=== PATIENT | female | born 1965 | race Caucasian/White ===

== ENCOUNTER 2024-10-27 17:28 | Observation (INO) ==
--- NOTE | 2024-10-27 17:46 | ED.PDOC ---
General ED Provider: Dr. SOFIA SIDHU MD Chief Complaint: Respiratory Complaint Stated Complaint: Patient is a 59-year-old female that reported to the emergency department for weakness, palpitations, and shortness of breath. Patient stated that this has been going on for approximately a month now. She stated that it is getting worse. Patient also stated that during this time she has been eating a lot of ice noting that sometimes it is excessive. Patient stated that she has not been seen by a physician in a long time. Patient stated that she has no past medical history. Patient stated that her past surgical history was a tonsillectomy and a when she was younger. Patient stated that she hit menopause at 45 years of age. Patient did admit to having a couple episodes of blood in the stool. Patient denied any hemoptysis or melanic stools. Patient denied ever having a colonoscopy. Patient denied any recent contacts with people that were ill. Patient denied any fever. Patient denied anything making her symptoms better or worse. Patient denied any current chest pain, nausea, vomiting, diarrhea, dizziness, syncope, loss of consciousness, lymphadenopathy, sore throat, headache, or any other acute symptoms not currently mentioned in this HPI. Patient's vital signs are currently stable. Patient's GCS is 15. Time Seen by Provider: 10/27/24 17:30 Mode of Arrival: Walk-In Information Source: Patient Exam Limitations: No limitations Nursing and Triage Documentation Reviewed and Agree: Yes What is Opioid Naive?: *Opioid Naive implies the patient is not already taking opioids or not chronically receiving opioids on a daily basis. *PRN dosing is not "usually" associated with tolerance. *Patients are at higher risk of over-sedation and aspiration. What is Opioid Tolerant?: *Opioid Tolerance implies less than the expected response to an opioid. *Acquired tolerance is defined by the patient taking 60mg of oral morphine daily (or equianalgesic dose of another opioid) for 1 week or more. *Often associated with chronic pain. *May take more than usual dose to achieve desired pain control. Review of Systems Review Of Systems Constitutional: Reports Weakness Eyes: Reports No symptoms Ears, Nose, Mouth, Throat: Reports No symptoms Respiratory: Reports Shortness of Breath Cardiac: Reports No symptoms GI: Reports No symptoms : Reports No symptoms Musculoskeletal: Reports No symptoms Skin: Reports No symptoms Neurological: Reports No symptoms Endocrine: Reports No symptoms Hematologic/Lymphatic: Reports No symptoms All Other Systems: Reviewed and Negative Physical Exam Physical Exam Appearance: Reports Well-appearing, No pain distress and Well-nourished Ill-appearing: None Pain Distress: None Eyes: Reports JOSEPH, EOMI and Conjunctiva clear ENT: Reports Ears normal, Nose normal and Oropharynx normal Neck: Supple Respiratory: Reports Airway patent, Breath sounds clear, Breath sounds equal and Respirations nonlabored Cardiovascular: Reports Pulses normal, No rub, Tachycardia (Apical pulse of 108 bpm.) and Murmur (Patient has a grade 2 S1 murmur notably heard in the aortic and pulmonic post.) GI/: Reports Soft, Nontender, No masses and Bowel sounds normal Musculoskeletal: Reports Normal strength, ROM intact, No edema and No calf tenderness Skin: Reports Warm, Dry and Normal color Neurological: Reports Sensation intact, Motor intact, Reflexes intact, Cranial nerves intact, Alert and Oriented Psychiatric: Reports Affect appropriate and Mood appropriate Course Course Orders, Labs, Meds: Orders Category Date Time Status EKG-(ED ONLY) Stat CARDIO 10/27/24 17:44 Ordered CBC W/ AUTO DIFF Stat LAB 10/27/24 17:49 Received CMP [COMPREHENSIVE METABOLIC PANEL] Stat LAB 10/27/24 17:49 Received COVID [SARS COV-2 RNA RAPID JADE] Stat LAB 10/27/24 17:49 Ordered FLU A & B MOLECULAR [FLU A/B MOLECULAR] Stat LAB 10/27/24 17:49 Ordered HEMOCCULT [OCCULT BLOOD, STOOL] Stat LAB 10/27/24 18:01 Uncollected HEMOGLOBIN A1C Stat LAB 10/27/24 18:01 Ordered RSV Stat LAB 10/27/24 17:49 Ordered CHEST, 1V AP ONLY Stat RADS 10/27/24 17:43 Ordered Vital Signs: Temp Pulse Resp BP Pulse Ox 10/27/24 17:37 99.9 F 109 H 18 182/91 H 100 Discharge Plan Discharge Patient Disposition: PLACED OBSERVATION Discharge Problem: Symptomatic anemia, Acute hyperglycemia, Heart murmur, systolic Hypertension Qualifiers: Hypertension type: unspecified Qualified Code(s): I10 - Essential (primary) hypertension Did you review [place] [employer]GE[employer] for ALL controlled substances?: Not Applicable ED Provider: SOFIA SIDHU Condition: Stable Physician Progress Note: Patient is a 59-year-old female that reported to the emergency department for weakness, palpitations, and shortness of breath. Patient stated that this has been going on for approximately a month now. She stated that it is getting worse. Patient also stated that during this time she has been eating a lot of ice noting that sometimes it is excessive. Patient stated that she has not been seen by a physician in a long time. Patient stated that she has no past medical history. Patient stated that her past surgical history was a tonsillectomy and a when she was younger. Patient stated that she hit menopause at 45 years of age. Patient did admit to having a couple episodes of blood in the stool. Patient denied any hemoptysis or melanic stools. Patient denied ever having a colonoscopy. Patient denied any recent contacts with people that were ill. Patient denied any fever. Patient denied anything making her symptoms better or worse. Patient denied any current chest pain, nausea, vomiting, diarrhea, dizziness, syncope, loss of consciousness, lymphadenopathy, sore throat, headache, or any other acute symptoms not currently mentioned in this HPI. Patient's vital signs are currently stable. Patient's GCS is 15. -Will order EKG, chest x-ray, and baseline labs. Will also order a COVID and influenza and RSV test. -Will order a Hemoccult exam. - patient also mentioned that she took her own blood glucose a couple days ago at home and was found to have a blood glucose of 158 mg/dL in the morning while fasting. Will order hemoglobin A1c. -EKG shows sinus tachycardia with a rate of 110 bpm. Low voltage QRS is noted. Normal axis is noted. No acute ST elevations are noted. This is interpreted by the ER physician. -Patient has an iron deficiency anemia with a hemoglobin of 4.8 and hematocrit of 18. Will type and cross 2 units PRBCs and give each unit over 4 hours. -Chest x-ray shows possible atelectasis in the left lower lobe otherwise unremarkable. This was interpreted by the ER physician. -I spoken with the hospitalist (Mark Obregon NP) for admissions for symptomatic anemia and possible diabetes. Hospitalist has agreed to accept this patient.
[2024-10-27 17:59] LABS: BASOPHILS % (AUTO) 0.5 % (0.0-3.0); EOSINOPHILS # (AUTO) 0.1 K/ul (0.0-0.7); EOSINOPHILS % (AUTO) 1.9 % (0.0-7.0); HEMATOCRIT 18.8 % (37.0-47.0); IMMATURE GRANULOCYTE # (AUTO) 0.1 (0.0-1.0); IMMATURE GRANULOCYTE % (AUTO) 1.4 % (0.0-5.0); LYMPHOCYTES # (AUTO) 1.3 K/uL (0.60-3.4); LYMPHOCYTES % (AUTO) 22.4 (10.0-50.0); MEAN CORPUSCULAR HEMOGLOBIN 14.8 pg (27.0-31.0); MEAN CORPUSCULAR HGB CONC 25.5 (31.8-35.4); MONOCYTES # (AUTO) 0.5 K/uL (0.4-2.0); MONOCYTES % (AUTO) 8.5 (0-10); NEUTROPHILS # (AUTO) 3.7 K/ul (2.0-6.9); NEUTROPHILS % (AUTO) 65.3 % (42.2-75.2); PLATELET COUNT 345 10^3/uL (140-440); RDW COEFFICIENT OF VARIATION 19.3 % (11.6-14.8); RED BLOOD COUNT 3.24 10^6/ul (4.20-5.40); WHITE BLOOD COUNT 5.67 K/ul (4.6-10.2)
[2024-10-27 18:12] LABS: ALANINE AMINOTRANSFERASE 26.3 U/L (0-35); ALBUMIN 4.51 g/dL (3.5-5.0); ALKALINE PHOSPHATASE 72.1 U/L (53-141); ASPARTATE AMINO TRANSFERASE 35.8 U/L (14-36); BILIRUBIN,TOTAL 0.41 mg/dL (0.2-1.3); BLOOD UREA NITROGEN 14.6 mg/dL (7-17); CALCIUM 8.72 mg/dL (8.4-10.2); CHLORIDE 106.9 mmol/L (98-107); CREATININE 0.8 mg/dL (0.60-1.30); GLUCOSE 225.7 mg/dL (74-106); POTASSIUM 3.64 mmol/L (3.5-5.1); SODIUM 139.3 mmol/L (134.5-145); TOTAL PROTEIN 7.59 g/dL (6.3-8.2)
[2024-10-27 18:13] LABS: HEMOGLOBIN 4.8 g/dl (12.0-16.0)
--- NOTE | 2024-10-27 18:15 | DI ---
EXAM: CHEST RADIOGRAPH TECHNIQUE: Single frontal chest radiograph. HISTORY: Shortness of breath. COMPARISON: None. FINDINGS: Lungs/Pleura: There are a few streaky markings in the left lower lobe which may be due to scarring or subsegmental atelectasis. Heart: The heart size is normal. Bones: Unremarkable. Other: None. IMPRESSION: 1. Scarring or subsegmental atelectasis in the left lower lobe.
[2024-10-27 18:18] LABS: ANISOCYTOSIS 3+ (NOT PRESENT); HYPOCHROMASIA 3+ (NOT PRESENT); MICROCYTOSIS 3+ (NOT PRESENT); POIKILOCYTOSIS 1+ (NOT PRESENT); POLYCHROMASIA 1+ (NOT PRESENT)
[2024-10-27 18:31] LABS: MOLECULAR FLU A NEGATIVE BY NAAT (NEGATIVE); MOLECULAR FLU B NEGATIVE BY NAAT (NEGATIVE); RSV MOLECULAR NEGATIVE BY NAAT (NEGATIVE); SARS COV-2 RNA RAPID NAAT NEGATIVE (NEGATIVE)
[2024-10-27 18:51] LABS: IRON 15.4 ug/dL (37-170)
[2024-10-27 20:03] LABS: OCCULT BLOOD SAMPLE 1 POSITIVE (NEGATIVE)
[2024-10-27 20:40] VITALS: BMI 26.6
[2024-10-27] MEDS: FERROUS SULFATE PO SCH (21:11)
[2024-10-27] MEDS: TYLENOL PO PRN (23:37)
[2024-10-28 05:16] LABS: BASOPHILS % (AUTO) 0.8 % (0.0-3.0); EOSINOPHILS # (AUTO) 0.1 K/ul (0.0-0.7); EOSINOPHILS % (AUTO) 1.3 % (0.0-7.0); HEMATOCRIT 23.3 % (37.0-47.0); IMMATURE GRANULOCYTE % (AUTO) 0.4 % (0.0-5.0); LYMPHOCYTES # (AUTO) 1.6 K/uL (0.60-3.4); LYMPHOCYTES % (AUTO) 30.9 (10.0-50.0); MEAN CORPUSCULAR HEMOGLOBIN 18.5 pg (27.0-31.0); MEAN CORPUSCULAR HGB CONC 28.8 (31.8-35.4); MEAN CORPUSCULAR VOLUME 64.2 fl (81.0-99.0); MONOCYTES # (AUTO) 0.6 K/uL (0.4-2.0); MONOCYTES % (AUTO) 10.6 (0-10); NEUTROPHILS # (AUTO) 2.9 K/ul (2.0-6.9); PLATELET COUNT 288 10^3/uL (140-440); RDW COEFFICIENT OF VARIATION 25.7 % (11.6-14.8); RED BLOOD COUNT 3.63 10^6/ul (4.20-5.40); WHITE BLOOD COUNT 5.21 K/ul (4.6-10.2)
[2024-10-28 05:21] LABS: HEMOGLOBIN 6.7 g/dl (12.0-16.0)
[2024-10-28 05:26] LABS: ALANINE AMINOTRANSFERASE 22.4 U/L (0-35); ALBUMIN 3.82 g/dL (3.5-5.0); ALKALINE PHOSPHATASE 53.8 U/L (53-141); ASPARTATE AMINO TRANSFERASE 25.2 U/L (14-36); BILIRUBIN,TOTAL 1.23 mg/dL (0.2-1.3); BLOOD UREA NITROGEN 11.4 mg/dL (7-17); CALCIUM 8.42 mg/dL (8.4-10.2); CHLORIDE 109.4 mmol/L (98-107); CREATININE 0.73 mg/dL (0.60-1.30); GLUCOSE 123.2 mg/dL (74-106); POTASSIUM 3.83 mmol/L (3.5-5.1); SODIUM 140.4 mmol/L (134.5-145); TOTAL PROTEIN 6.49 g/dL (6.3-8.2)
[2024-10-28 05:42] LABS: ANISOCYTOSIS 2+ (NOT PRESENT); HYPOCHROMASIA 2+ (NOT PRESENT); MICROCYTOSIS 2+ (NOT PRESENT); POIKILOCYTOSIS 2+ (NOT PRESENT); POLYCHROMASIA 1+ (NOT PRESENT)
--- NOTE | 2024-10-28 09:55 | PCM.SS ---
Provider Provider: ERUM ROMERO, [facility] Admission Date Admission Date: 10/27/24 Discharge Date Discharge Date: 10/28/24 Chief Complaint Reason For Visit: FATIGUE, WEAK History of Present Illness History of Present Illness: Admitted 10/27/24 18:36, this 59 year old /WHITE/F presented to the ER with complaints with weakness and shortness of breath. States she has been feeling weak and fatigued for several weeks but worse of the last 2 days. Patient was found to have 4.8 hemoglobin on arrival to ER. States she has had bright red blood in her stools over at least the past 5 months but has not seen a provider. She was trying to get in to see a PCP but could not wait due to how she was feeling. Denies any other sources of bleeding. She is post-menopausal. Denies any other symptoms. [facility] Family History Mother Diabetes SISTER Lymphoma FATHER Dementia Social History Smoking and tobacco status: Never smoker Alcohol intake: never Mayra/adventist: EPISCOPALIAN Special mayra needs: No Agree to transfusion: Yes Medications Mecications: Medications at Discharge (Home Meds & RX) 1 [No Reported Medications] 10/27/24 Allergies Allergies Allergy/AdvReac Type Severity Reaction Status Date / Time fluticasone (From Flonase) AdvReac Verified 10/27/24 17:37 Review of Systems Constitutional: Reports Fatigue and Weakness Eyes: Reports No symptoms Ears: Reports No symptoms Nose: Reports No symptoms Mouth: Reports No symptoms Throat: Reports No symptoms Cardiovascular: Reports No symptoms Respiratory: Reports Shortness of air Gastrointestinal: Reports Other (bright red blood in stools) Genitourinary: Reports No Symptoms Musculoskeletal: Reports No symptoms Endocrine: Reports No symptoms Hematology: Reports No symptoms Immunology: Reports No symptoms Neurological: Reports No symptoms Psychiatric: Reports No symptoms Physical Examination Appearance: Positive No Apparent Distress and Alert and Oriented x3 Head: Positive Normocephalic Neck: Positive Supple and Non-Tender Heart: Positive RRR Respiratory: Positive Airway patent, Breath Sounds Clear, Bilaterally, Breath Sounds Equal and Respirations Nonlabored GI/: Positive Soft, Nontender, Bowel sounds normal and No Distention Extremities: Positive Pedal Pulses Palpable Bilaterally Neurological: Positive Sensation Intact, Motor Intact, Alert and Oriented Vital Signs (Last 4 Hours) Vital Signs Last 4 Hours: Vital Signs: Last 4 Hours 10/28/24 06:00 10/28/24 06:00 10/28/24 07:00 Temperature 98.3 F Temperature Source Temporal Artery Scan Pulse Rate 72 Respiratory Rate 16 Blood Pressure 111/66 Blood Pressure Mean 81 Blood Pressure Location Right Arm Blood Pressure Position Supine O2 Sat by Pulse Oximetry 97 Oxygen Delivery Method Room Air Room Air Room Air Telemetry Type Telemetry Monitoring Telemetry Heart Rate EKG [place] Interval EKG QRS Interval Telemetry Strip Reading 10/28/24 07:00 10/28/24 08:00 10/28/24 08:00 Temperature Temperature Source Pulse Rate Respiratory Rate Blood Pressure Blood Pressure Mean Blood Pressure Location Blood Pressure Position O2 Sat by Pulse Oximetry Oxygen Delivery Method Room Air Room Air Telemetry Type Remote Telemetry Telemetry Monitoring Continues Telemetry Heart Rate 75 EKG NY Interval 0.17 EKG QRS Interval 0.06 Telemetry Strip Reading SR 10/28/24 09:00 10/28/24 09:39 Temperature Temperature Source Pulse Rate Respiratory Rate Blood Pressure Blood Pressure Mean Blood Pressure Location Blood Pressure Position O2 Sat by Pulse Oximetry Oxygen Delivery Method Room Air Room Air Telemetry Type Telemetry Monitoring Telemetry Heart Rate EKG NY Interval EKG QRS Interval Telemetry Strip Reading Labs This Visit Labs This Visit: Labs This Visit 10/27/24 10/27/24 10/27/24 17:44 17:49 18:20 WBC 5.67 RBC 3.24 L Hgb 4.8 L* Hct 18.8 L MCV 58.0 L MCH 14.8 L MCHC 25.5 L RDW Coeff of Zay 19.3 H Plt Count 345 Immature Gran % (Auto) 1.4 Neut % (Auto) 65.3 Lymph % (Auto) 22.4 Dewey % (Auto) 8.5 Eos % (Auto) 1.9 Baso % (Auto) 0.5 Neut # (Auto) 3.7 Lymph # (Auto) 1.3 Dewey # (Auto) 0.5 Eos # (Auto) 0.1 Baso # (Auto) 0.0 Immature Gran # (Auto) 0.1 Polychromasia 1+ Hypochromasia 3+ Poikilocytosis 1+ Anisocytosis 3+ Microcytosis 3+ RBC Morph Comment Sodium 139.3 Potassium 3.64 Chloride 106.9 Carbon Dioxide 21.0 L Anion Gap 15.04 BUN 14.6 Creatinine 0.80 Estimated GFR (MDRD) 73.00 BUN/Creatinine Ratio 18.25 Glucose 225.7 H Calcium 8.72 Iron TIBC % Saturation Ferritin Total Bilirubin 0.41 AST 35.8 ALT 26.3 Alkaline Phosphatase 72.1 Total Protein 7.59 Albumin 4.51 Globulin 3.08 Albumin/Globulin Ratio 1.46 Stl Occult Blood (IFOB) Influ A Molecular Assay Negative by naat Influ B Molecular Assay Negative by naat RSV Antigen Negative by naat SARS CoV-2 RNA Rapid JADE Negative Blood Type B POSITIVE B POSITIVE Antibody Screen Negative Crossmatch (G) See Detail 10/27/24 10/27/24 10/28/24 18:42 19:30 04:55 WBC 5.21 RBC 3.63 L Hgb 6.7 L* Hct 23.3 L MCV 64.2 L D MCH 18.5 L MCHC 28.8 L RDW Coeff of Zay 25.7 H Plt Count 288 Immature Gran % (Auto) 0.4 Neut % (Auto) 56.0 Lymph % (Auto) 30.9 Dewey % (Auto) 10.6 H Eos % (Auto) 1.3 Baso % (Auto) 0.8 Neut # (Auto) 2.9 Lymph # (Auto) 1.6 Dewey # (Auto) 0.6 Eos # (Auto) 0.1 Baso # (Auto) 0.0 Immature Gran # (Auto) 0.0 Polychromasia 1+ Hypochromasia 2+ Poikilocytosis 2+ Anisocytosis 2+ Microcytosis 2+ RBC Morph Comment Sodium Potassium Chloride Carbon Dioxide Anion Gap BUN Creatinine Estimated GFR (MDRD) BUN/Creatinine Ratio Glucose Calcium Iron 15.4 L TIBC 453 % Saturation 3 Ferritin 2.99 L Total Bilirubin AST ALT Alkaline Phosphatase Total Protein Albumin Globulin Albumin/Globulin Ratio Stl Occult Blood (IFOB) Positive Influ A Molecular Assay Influ B Molecular Assay RSV Antigen SARS CoV-2 RNA Rapid JADE Blood Type Antibody Screen Crossmatch (G) 10/28/24 05:01 WBC RBC Hgb Hct MCV MCH MCHC RDW Coeff of Zay Plt Count Immature Gran % (Auto) Neut % (Auto) Lymph % (Auto) Dewey % (Auto) Eos % (Auto) Baso % (Auto) Neut # (Auto) Lymph # (Auto) Dewey # (Auto) Eos # (Auto) Baso # (Auto) Immature Gran # (Auto) Polychromasia Hypochromasia Poikilocytosis Anisocytosis Microcytosis RBC Morph Comment Sodium 140.4 Potassium 3.83 Chloride 109.4 H Carbon Dioxide 22.0 Anion Gap 12.83 BUN 11.4 Creatinine 0.73 Estimated GFR (MDRD) 82.00 BUN/Creatinine Ratio 15.61 Glucose 123.2 H D Calcium 8.42 Iron TIBC % Saturation Ferritin Total Bilirubin 1.23 AST 25.2 ALT 22.4 Alkaline Phosphatase 53.8 Total Protein 6.49 Albumin 3.82 Globulin 2.67 Albumin/Globulin Ratio 1.43 Stl Occult Blood (IFOB) Influ A Molecular Assay Influ B Molecular Assay RSV Antigen SARS CoV-2 RNA Rapid JADE Blood Type Antibody Screen Crossmatch (AHG) Imaging Imaging: EXAM: CHEST RADIOGRAPH TECHNIQUE: Single frontal chest radiograph. HISTORY: Shortness of breath. COMPARISON: None. FINDINGS: Lungs/Pleura: There are a few streaky markings in the left lower lobe which may be due to scarring or subsegmental atelectasis. Heart: The heart size is normal. Bones: Unremarkable. Other: None. IMPRESSION: 1. Scarring or subsegmental atelectasis in the left lower lobe. Review Review Statement: I have independently reviewed and interpreted the labs/EKGs/imaging that were ordered by the ER provider. I have reviewed all outside records that are available currently in our EMR including imaging/notes/labs from previous visits. Plan Reccomendations/Plan: 1. Anemia secondary to GI bleeding - received 2 units of PRBC that increased hgb 6.7, symptoms improving, transfuse additional unit today 2. Iron Deficiency Anemia - start on iron supplementation 324 mg bid 3. GI bleeding - protonix 40 mg bid, refer to GI for colonoscopy 4. Systolic murmur - echo completed and normal with EF 61%. 1450 3 units of PRBC received total, hemoglobin now 8.1, feeling much better now. Had some small areas of hives to her face. Receive steroids, pepcid, and benadryl. Hemodynamically stable. Referral sent to Suzanne YUAN. Sent Rx for iron tabs and protonix 40 mg BID. Has follow-up appointment with new PCP next week. Discusses warning s/sx of anemia to know when to return to the ER. Additional Planning: Case discussed with ED Physician, Dr. Victoria. DVT Prophylaxis: Ambulation Disposition: Admit to: Med/surg Observation Full code Discussed Plan of Care with Dr. Lisa Badillo If patient discharged with Left Ventricular Systolic Dysfunction: NO Discharged with a beta kailee? [] If no, why not? [] Discharged with an adore/arb? [] If no, why not? [] Diagnosis: Anemia Diet: Regular, Increase iron rich foods Activity: as tolerated Follow-up with PCP next week. Medications: Bruce Stallings Review With Patient Reviewed with Patient and Family: Patient and family have been counseled on condition and care plan and have no immediate questions. I have personally discussed and reviewed the patient's visit/current labs/imaging/decision making with Dr. Aleida Badillo, my supervising attending. Total number of minutes spent with patient 85 min. More than 50% of the time spent with this patient was devoted to counseling and coordination of care. Time of Admission:10/27/24 18:36 Time of Discharge: 10/28/24 14:54 Discharge Plan Discharge Discharge Orders: Discharge Patient (ONCE); Ordered 10/28/24 Ordered By: SAAD GARRIDO Activity Restrictions/Additional Instructions: Diagnosis: Anemia Diet: Regular, Increase iron rich foods Activity: as tolerated Follow-up with PCP next week. Medications: Bruce Stallings Instructions: Gastrointestinal Bleeding (GEN), Iron Rich Diet (GEN), Iron Deficiency Anemia (GEN), Anemia (GEN) Patient Disposition: HOME SELF-CARE Prescriptions: New ferrous sulfate 324 mg (65 mg iron) Tablet,Delayed Release (Dr/Ec) 324 mg PO BID Qty: 60 0RF pantoprazole 40 mg tablet,delayed release (DR/EC) 40 mg PO BID Qty: 60 0RF Did you review [place] COMM[employer]ITY SPECIALIST for ALL controlled substances?: No Discussed opioids are addictive and Narcan is available by prescription or from pharmacy.: No Condition: Stable Referrals: TERESA STODDARD APRN,EDM OPERATOR-C [Primary Care Provider] - 11/02/24 11:00 am
[2024-10-28 12:25] VITALS: RESP 16
--- NOTE | 2024-10-28 13:06 | ECHO2D ---
Date of Exam: 10/28/2024 Ordering Physician: HOSPITALIST--DOM Room #: 121 Reason for Echo: HEART MURMUR-SYSTOLIC, HTN, SYMPTOMATIC ANEMIA M-Mode Normal Adult Results LV Dimensions Normal Adult Results AoV Opening excursions >1.6 >1.6 LVEDD-base- 3.5-5.8 4.7 Ao root dimensions 2.0-3.7 3.3 LVESD-base- 3.1-4.6 L. Atrium dimensions 1.9-3.8 3.8 Post. Wall thickness 0.8-1.1 1.1 IV septum (thickness) 0.7-1.2 1.1 Post. Wall excursion 0.72-1.3 NORMAL Septal motion NORMAL Systolic motion R. Ventricular cavity 1.5-2.0 NORMAL LVEF 60% 62% Paradoxical septal wall motion NORMAL 2-D : 2-D M Mode Echocardiogram was performed using apical four chamber and left parasternal long and short axis views. Mitral, tricuspid and aortic valves appear to be normal. Contractility of the left ventricle seems to be normal, so is the cavity size. Left atrial cavity size and aortic root appear to be normal. There is no pericardial effusion. There is no thrombus noted in the left ventricle or left atrial cavity. M-MODE: MV: NORMAL AV: NORMAL TV: NORMAL PV: CHAMBER SIZE: NORMAL WALL MOTION: NORMAL PERICARDIUM: NORMAL INTERPRETATION: 1. NORMAL 2 "D" "M" MODE [facility]CHO [facility]
[2024-10-28 13:23] VITALS: TEMP 98
[2024-10-28 13:56] VITALS: BP 130/82; PULSE 70
[2024-10-28] MEDS ORDERED: BENADRYL 25 MG in SODIUM CHLORIDE 100ML 100 ML IV STA (13:59)
[2024-10-28] MEDS: SOLU-MEDROL 125 MG IVP ONE (14:11)
[2024-10-28] MEDS: PEPCID IVP ONE (14:15)
[2024-10-28] MEDS: BENADRYL IVP STA (14:18)
[2024-10-28 14:36] LABS: HEMATOCRIT 27.7 % (37.0-47.0); HEMOGLOBIN 8.1 g/dl (12.0-16.0)
== END 2024-10-28 16:05 | disposition home or self-care (01) ==
LOC: MEDSURG B 17:28 → ED 17:28 → MEDSURG B 19:34
PROVIDERS: ADMIT Hospitalist; ATTEND Nurse Practitioner Family
DX: R73.9 Hyperglycemia, unspecified; Z20.822 Contact with and (suspected) exposure to COVID-19; Z78.0 Asymptomatic menopausal state; K92.1 Melena; R01.1 Cardiac murmur, unspecified; J98.11 Atelectasis; I10 Essential (primary) hypertension; R53.1 Weakness; D50.9 Iron deficiency anemia, unspecified; R00.0 Tachycardia, unspecified; R06.02 Shortness of breath; R53.83 Other fatigue